=== PATIENT | male | born 1955 | race Caucasian/White ===

== ENCOUNTER 2023-04-24 15:57 | Emergency (ER) | payer OTHER, SELFPAY ==
[2023-04-24] VITALS (9 sets, daily range): BP systolic 113–139; BP diastolic 72–89; PULSE 56–63; RESP 14–20; TEMP 36.7; O2SAT 95–97
--- NOTE | ~2023-04-24 | XR_ITS ---
Portable chest x-ray Comparison: None Clinical History: Chest pain Findings: Questionable minimal bibasilar haziness. Cardiomediastinal silhouette is unremarkable, wi th evidence of prior median sternotomy. Bones and soft tissues are unremarkable. Impression: Questionable minimal bibasilar pulmonary edema or atelectasis. Status post median sternotomy. Reviewed, dictated and finalized at [facility]. Impression: Questionable minimal bibasilar pulmonary edema or atelectasis. Status post median sternotomy.
--- NOTE | 2023-04-24 16:03 | ECG_ITS ---
Measurements Intervals [place] Rate: 55 P: 34 HI: 188 QRS: -47 QRSD: 114 T: -30 QT: 431 QTc: 413 Interpretive Statements SINUS BRADYCARDIA INTRAVENTRICULAR CONDUCTION DELAY BORDERLINE R WAVE PROGRESSION, ANTERIOR LEADS BORDERLINE T WAVE ABNORMALITY- ANTEROLAT/INF LEADS BORDERLINE ECG NO PREVIOUS ECG AVAILABLE FOR COMPARISON Electronically Signed On 04-25-2023 6:59:31 CDT by Kendell Treadwell D.O.
[2023-04-24 16:22] LABS: Basophils Percent Auto 0.6 % (0.2-1.2); Eosinophils Absolute Auto 0.2 K/mm3 (0-0.3); Eosinophils Percent Auto 2.6 % (0-4.4); Hematocrit 43.8 % (42.0-52.0); Hemoglobin 14.7 g/dL (14.0-18.0); Immature Granulocyte Absolute 0.03 K/mm3 (0.00-0.031); Immature Granulocyte Percent A 0.5 % (0-0.5); Lymphocytes Percent Auto 22.5 % (18.3-44.2); Mean Corpuscular HGB Conc 33.6 g/dl (32-36); Mean Corpuscular Hemoglobin 32.7 pg (26-34); Mean Corpuscular Volume 97.6 fl (80-100); Mean Platelet Volume 10.1 fl (7.4-10.4); Monocytes Absolute Auto 0.6 K/mm3 (0.1-0.6); Monocytes Percent Auto 9.3 % (2.6-8.5); Neutrophils Percent Auto 64.5 % (45.5-73.1); Platelet Count Result 160 k/mm3 (150-375); Red Blood Count 4.49 M/mm3 (4.6-6.20); Red Cell Distribution Width 12.4 % (11.5-14.5); White Blood Count 6.2 K/mm3 (4.5-10.0)
[2023-04-24 16:27] LABS: Alanine Aminotransferase 65 U/L (6-50); Albumin Level 4.3 g/dL (3.5-5.1); Alkaline Phosphatase 66 U/L (38-126); Anion Gap 11 mmol/L (8-16); Aspartate Amino Transferase 48 U/L (17-59); Bilirubin,Total 0.6 mg/dL (0.2-1.3); Blood Urea Nitrogen 19 mg/dL (9-20); Calcium 9.1 mg/dL (8.4-10.2); Carbon Dioxide 20 mmol/L (22-30); Chloride 108 mmol/L (98-107); Estimated CRCL calculation 73 ml/min; Estimated Glomerular Filt Rate > 60; Glucose 140 mg/dL (65-110); Lipase 84 U/L (23-300); Potassium 4.4 mmol/L (3.4-5.0); Prothrombin Time 13.9 Seconds (11.1-14.7); Sodium 139 mmol/L (137-145)
[2023-04-24 16:28] LABS: Partial Thromboplastin Time 26.4 SECONDS (22.3-36.8)
[2023-04-24 16:38] LABS: Troponin I < 0.012 ng/mL (0.000-0.034)
[2023-04-24] MEDS: MORPHINE SULFATE (*CRX) 4 MG/ML INJ IV PUSH (16:43)
--- NOTE | 2023-04-24 16:44 | ED.CHESTPAIN ---
HPI - Chest Pain General Chief Complaint: Chest Pain Stated Complaint: CP Time Seen by Provider: 04/24/23 16:08 History of Present Illness HPI narrative: Patient is a 67-year-old male with history of coronary artery disease as well as CABG and coronary stenting who presents ER with chest pain. Sudden onset at 3:15 PM. Right-sided and sharp. Went down his right arm and into the middle of his back. EMS arrived and patient received aspirin and nitroglycerin. The nitroglycerin brought his pain down to a 6/10. No diaphoresis. No nausea or vomiting. No dyspnea. Feels similar to previous PR only it is lateralizing to the right and to the left. Patient was driving back from [place] and lives in [place]. His facility service associate, Dr. Hassan, is at [facility]. Patient has no hemoptysis. No pain with deep breath. No lower extremity swelling or cramping. Related Data Home Medications Medication Instructions Recorded Confirmed Allergy Relief (fluticasone) 04/24/23 amlodipine 5 mg tablet 5 mg PO DAILY 04/24/23 atorvastatin 40 mg tablet 40 mg PO DAILY 04/24/23 clopidogrel 75 mg tablet 75 mg PO DAILY 04/24/23 dapagliflozin propanediol 10 mg 10 mg PO DAILY 04/24/23 tablet (Farxiga) fluoxetine 20 mg capsule 20 mg PO DAILY 04/24/23 icosapent ethyl 1 gram capsule 2 g PO BID 04/24/23 isosorbide mononitrate 60 mg 60 mg PO DAILY 04/24/23 tablet,extended release 24 hr lisinopril 20 mg tablet 20 mg PO DAILY 04/24/23 metformin 1,000 mg tablet 1,000 mg PO BID 04/24/23 pantoprazole 20 mg tablet,delayed 20 mg PO QAM 04/24/23 release spironolactone 50 mg tablet 50 mg PO DAILY 04/24/23 trazodone 100 mg tablet 100 mg PO HS 04/24/23 Allergies Allergy/AdvReac Type Severity Reaction Status Date / Time No Known Allergies Allergy Verified 04/24/23 16:07 [facility] Past Medical History Medical History (Updated 04/24/23 @ 17:25 by Rigoberto Staley MD) Coronary artery disease Hyperlipidemia Hypertension Surgical History Surgical History (Updated 04/24/23 @ 17:23 by Rigoberto Staley MD) History of coronary artery bypass graft History of percutaneous coronary intervention Exam Narrative: GENERAL: Well-appearing, well-nourished, and in no acute distress. HEAD: Normocephalic, atraumatic. ENT: Mucous membranes moist. NECK: Supple. CHEST: Clear to auscultation. No respiratory distress. HEART: Regular rate and rhythm. Normal peripheral pulses that are equal. ABDOMEN: Soft, nontender, nondistended. EXTREMITIES: Normal range of motion. No edema. SKIN: Warm, dry, no rash. NEURO: Alert and oriented x3. PSYCH: Normal mood and affect. Course Course Emergency Course: 1721: Patient still with slight chest discomfort 4/10 after morphine and nitro. Will place 1/2 inch of Nitropaste on the chest. Patient has been accepted to [facility] by Dr. Tariq. We are awaiting a bed. Vital Signs Vital signs: Vital Signs Temperature 98.1 F 04/24/23 15:59 Pulse Rate 57 L 04/24/23 15:59 Respiratory Rate 16 04/24/23 15:59 Blood Pressure 127/78 04/24/23 15:59 Pulse Oximetry 97 04/24/23 15:59 Oxygen Delivery Room Air 04/24/23 15:59 Temperature 98.1 F 04/24/23 15:59 Pulse Rate 58 L 04/24/23 18:01 Respiratory Rate 19 04/24/23 18:01 Blood Pressure 120/76 04/24/23 18:01 Pulse Oximetry 95 04/24/23 18:01 Oxygen Delivery Room Air 04/24/23 16:00 MDM - Chest Pain Lab Data 04/24/23 16:11 04/24/23 16:11 Labs: Lab Results 04/24/23 Range/Units 16:11 WBC 6.2 (4.5-10.0) K/mm3 RBC 4.49 L (4.6-6.20) M/mm3 Hgb 14.7 (14.0-18.0) g/dL Hct 43.8 (42.0-52.0) % MCV 97.6 (80-100) fl MCH 32.7 (26-34) pg MCHC 33.6 (32-36) g/dl RDW 12.4 (11.5-14.5) % Plt Count 160 (150-375) k/mm3 MPV 10.1 (7.4-10.4) fl Immature Gran % (Auto) 0.5 (0-0.5) % Neut % (Auto) 64.5 (45.5-73.1) % Lymph % (Auto) 22.5 (18.3-44.2) % [place] % (Auto
[2023-04-24] MEDS: NITROGLYCERIN OINTMENT 1 INCH DOSE 0.5 INCH TRANSDERM (17:32)
[2023-04-24 19:38] LABS: Troponin I < 0.012 ng/mL (0.000-0.034)
== END 2023-04-24 20:44 | disposition short-term general hospital (02) ==
PROVIDERS: Emergency Provider Emergency Medicine
DX: R07.9 Chest pain, unspecified (principal); R00.1 Bradycardia, unspecified; I25.10 Atherosclerotic heart disease of native coronary artery without angina pectoris; E78.5 Hyperlipidemia, unspecified; I10 Essential (primary) hypertension
CPT/HCPCS: 36415; 71045; 80053; 83690; 84484; 85025; 85610; 85730; 93005; 96374; 99285; A9270; J2270